=== PATIENT | male | born 1985 | race Hispanic/Latino ===

== ENCOUNTER 2019-04-12 14:10 | Emergency (ER) | payer OTHER, SELFPAY ==
--- NOTE | 2019-04-12 14:41 | RAD ---
4 views left knee: 04/12/2019 COMPARISON: None HISTORY: Fall, injury FINDINGS: There is no displaced fracture or evidence of dislocation seen. There is a knee joint effus ion. There is soft tissue swelling anterior to the patella. IMPRESSION: Knee joint effusion. Soft tissue swelling. No displaced fracture or dislocation. Given history of injury one month ago, MRI may be beneficial to evaluate for an underlying internal d erangement.
[2019-04-12] MEDS ORDERED: Ketorolac Tromethamine 30 MG/ML VIAL ONE (16:11)
== END 2019-04-12 16:37 | disposition home or self-care (01) ==
LOC: ERS 14:10
DX: M25.462 Effusion, left knee (principal); W18.30XA Fall on same level, unspecified, initial encounter; Y93.51 Activity, roller skating (inline) and skateboarding
CPT/HCPCS: 96372; J1885

== ENCOUNTER 2019-04-18 15:35 | Outpatient (CLI) | payer OTHER ==
--- NOTE | 2019-04-18 15:50 | RAD ---
XR Shoulder Lt 2 View HISTORY: Injury, left shoulder pain FINDINGS: No fracture or dislocation is identified.
== END 2019-04-18 15:36 | disposition home or self-care (01) ==
LOC: BICRAD 15:35
PROVIDERS: ATTEND Family Medicine
DX: M25.512 Pain in left shoulder (principal)
CPT/HCPCS: 36415; 80053

== ENCOUNTER 2019-10-26 10:23 | Emergency (ER) | payer OTHER ==
[2019-10-27 12:12] LABS: SARS-CoV-2 MS2 Positive; SARS-CoV-2 N Gene Negative; SARS-CoV-2 S Gene Negative; SARS-CoV-2 orf1ab Negative
== END 2019-10-26 11:10 | disposition home or self-care (01) ==
LOC: ERS 10:23
DX: R05 Cough (principal); R07.9 Chest pain, unspecified; Z20.828 Contact with and (suspected) exposure to other viral communicable diseases
CPT/HCPCS: 87635; 99283; U0003

== ENCOUNTER 2020-03-01 11:49 | Emergency (ER) | payer OTHER ==
[2020-03-01] MEDS ORDERED: Ibuprofen 800 MG TAB ONE (12:13)
--- NOTE | 2020-03-01 12:32 | RAD ---
XR Hand Rt 3 View STANDARD History: Injury Comparison: None. Findings: Evidence of an old fifth metacarpal neck fracture. Small sliver of bone along the expected location of the hamate seen only on the lateral radiograph with adjacent soft tissue swelling. Accessory carpal boss along the third metacarpal base. Impression: Concern for nondisplaced fracture of the dorsal hamate seen on the lateral radiograph wit h adjacent soft tissue swelling. Focal tenderness correlation is advised.
--- NOTE | 2020-03-01 12:34 | RAD ---
XR Forearm Rt 2 View STANDARD History: Pain Comparison: None. Findings: Forearm is intact. No definite elbow joint effusion. Impression: Intact forearm. There is elbow pain, dedicated 4 views of the elbow would be recommended.
== END 2020-03-01 13:11 | disposition home or self-care (01) ==
LOC: ERS 11:49
DX: S62.141A Displaced fracture of body of hamate [unciform] bone, right wrist, initial encounter for closed fracture (principal); V09.9XXA Pedestrian injured in unspecified transport accident, initial encounter
CPT/HCPCS: 29125

== ENCOUNTER 2021-02-09 00:53 | Emergency (ER) | payer OTHER | END 2021-02-09 05:55 | disposition home or self-care (01) | LOC: ERS 00:53 | DX: J45.901 Unspecified asthma with (acute) exacerbation (principal); F17.210 Nicotine dependence, cigarettes, uncomplicated | CPT/HCPCS: 71045; 93005; 94640; J7620 ==